=== PATIENT | female | born 1965 | race Caucasian/White ===

== ENCOUNTER 2016-09-27 08:36 | Emergency (ER) | payer BC ==
[~2016-09-27 08:36] MED LIST: DARVOCET-N 1001 TAB; FLEXERIL10 MG; MOTRIN IB200 MG; TRAMADOL HCL50 MG; VICODIN 5/500 T1 TAB PO; [UNRECOGNIZED DRUG - OTHER]
[2016-09-27] MEDS ORDERED: ANTIDEPRESSANT (09:01)
== END 2016-09-27 09:30 ==
LOC: EDMED 08:36
DX: T18.128A Food in esophagus causing other injury, initial encounter (principal); Z90.49 Acquired absence of other specified parts of digestive tract; Z98.84 Bariatric surgery status; Z98.890 Other specified postprocedural states; Y99.8 Other external cause status